=== PATIENT | male | born 1960 | race Caucasian/White ===

== ENCOUNTER 2022-12-03 08:14 | Observation (INO) ==
--- NOTE | 2022-11-12 08:50 | PAT Medication Instructions ---
Medication Instructions Date of Service November 12, 2022 Home Medications Medication Instructions Recorded [employer] #1 ea 02/06/22 cholecalciferol (vitamin D3) 50 50 mcg PO QAM #90 caps 04/25/22 mcg (2,000 unit) capsule omeprazole 20 mg capsule,delayed 20 mg PO QAM PRN reflux #90 caps 05/12/22 release cyclobenzaprine 5 mg tablet 5 mg PO TID PRN muscle spasm #20 08/13/22 tabs lisinopril 5 mg tablet (Zestril) 5 mg PO QAM #90 tabs 08/27/22 atorvastatin 40 mg tablet (Lipitor) 40 mg PO QPM #90 tabs 08/28/22 nicotine 14 mg/24 hr daily 1 patch transdermal DAILY #14 ea 09/02/22 transdermal patch nicotine 7 mg/24 hr daily 1 patch transdermal Q24H #14 ea 09/02/22 transdermal patch hydrocodone 5 mg-acetaminophen 325 1 tab PO Q8H PRN pain #30 tabs 10/23/22 mg tablet carvedilol 6.25 mg tablet (Coreg) 6.25 mg PO BID #180 tabs 11/10/22 trazodone 50 mg tablet 50 mg PO HS PRN Sleep #90 tabs 11/10/22 venlafaxine 75 mg capsule,extended 75 mg PO QAM #90 caps 11/10/22 release 24 hr (Effexor XR) aspirin 81 mg tablet,delayed release 81 mg PO QAM [employer] cholecalciferol (vitamin D3) 50 mcg (2,000 unit) capsule 50 mcg PO QAM omeprazole 20 mg capsule,delayed release 20 mg PO QAM PRN cyclobenzaprine 5 mg tablet 5 mg PO TID PRN lisinopril 5 mg tablet (Zestril) 5 mg PO QAM atorvastatin 40 mg tablet (Lipitor) 40 mg PO QPM nicotine 14 mg/24 hr daily transdermal patch 1 patch transdermal DAILY nicotine 7 mg/24 hr daily transdermal patch 1 patch transdermal Q24H hydrocodone 5 mg-acetaminophen 325 mg tablet 1 tab PO Q8H PRN carvedilol 6.25 mg tablet (Coreg) 6.25 mg PO BID trazodone 50 mg tablet 50 mg PO HS PRN venlafaxine 75 mg capsule,extended release 24 hr (Effexor XR) 75 mg PO QAM ASK your prescriber and surgeon nicotine 14 mg/24 hr daily transdermal patch 1 patch transdermal DAILY nicotine 7 mg/24 hr daily transdermal patch 1 patch transdermal Q24H DO NOT take the morning of surgery cholecalciferol (vitamin D3) 50 mcg (2,000 unit) capsule 50 mcg PO QAM cyclobenzaprine 5 mg tablet 5 mg PO TID PRN lisinopril 5 mg tablet (Zestril) 5 mg PO QAM Take morning of surgery With a small sip of water, OTHERWISE NOTHING TO EAT OR DRINK AFTER MIDNIGHT: omeprazole 20 mg capsule,delayed release 20 mg PO QAM PRN(if needed) hydrocodone 5 mg-acetaminophen 325 mg tablet 1 tab PO Q8H PRN(if needed) carvedilol 6.25 mg tablet (Coreg) 6.25 mg PO BID venlafaxine 75 mg capsule,extended release 24 hr (Effexor XR) 75 mg PO QAM aspirin 81 mg tablet,delayed release 81 mg PO QAM (unless directed otherwise by surgeon) Take evening before surgery cyclobenzaprine 5 mg tablet 5 mg PO TID PRN(if needed) atorvastatin 40 mg tablet (Lipitor) 40 mg PO QPM hydrocodone 5 mg-acetaminophen 325 mg tablet 1 tab PO Q8H PRN(if needed) carvedilol 6.25 mg tablet (Coreg) 6.25 mg PO BID trazodone 50 mg tablet 50 mg PO HS PRN(if needed) Other Notes If you have any questions please call us at [phone] or [phone] or [phone] or [phone]
--- NOTE | 2022-11-13 09:20 | Anesthesiology Consultation ---
Date of Service November 13, 2022 Assessment & Plan (1) Encounter for pre-operative examination: Plan - left upper tooth infection, pt states surgeon's office is aware. - Outpatient joint assessment: Patient is currently scheduled for inpatient pathway. If re-evaluated pending system levels during current pandemic/surgeon requests outpatient pathway, patient is not acceptable candidate for outpatient joint program from anesthesia standpoint due to inadequate home support. - Case discussed with Dr. Covarrubias who advised pt acceptable to proceed from his standpoint, does not need further evaluation or testing. Chart Review Chart Review: Acceptable Risk for Surgery and Patient seen in Pre Admission Testing Teaching & Discussion Pre-Anesthesia Teaching/Discussion Notes: Instructed NPO after midnight before surgery, except medications with 15 cc of water. Medication instructions provided according to the PAT guidelines. History Surgery Operation Date: 12/03/22 08:50 Proposed Procedures p Left Total Knee Arthroplasty - Partha Virgen MD Height/Weight Height: 5 ft 9.5 in Weight: 95.8 kg Allergies Allergy/AdvReac Type Severity Reaction Status Date / Time No Known Drug Allergies Allergy Verified 11/12/22 07:30 Medications Home Medications Medication Instructions Recorded Confirmed Last Taken aspirin 81 mg tablet,delayed 81 mg PO QAM 07/22/21 11/12/22 11/07/21 09:00 release [employer] #1 ea 02/06/22 10/23/22 Unknown cholecalciferol (vitamin D3) 50 50 mcg PO QAM #90 caps 04/25/22 11/12/22 Unknown mcg (2,000 unit) capsule omeprazole 20 mg capsule,delayed 20 mg PO QAM PRN reflux #90 caps 05/12/22 11/12/22 Unknown release cyclobenzaprine 5 mg tablet 5 mg PO TID PRN muscle spasm #20 08/13/22 11/12/22 Unknown tabs lisinopril 5 mg tablet (Zestril) 5 mg PO QAM #90 tabs 08/27/22 11/12/22 Unknown atorvastatin 40 mg tablet (Lipitor) 40 mg PO QPM #90 tabs 08/28/22 11/12/22 Unknown nicotine 14 mg/24 hr daily 1 patch transdermal DAILY #14 ea 09/02/22 11/12/22 Unknown transdermal patch nicotine 7 mg/24 hr daily 1 patch transdermal Q24H #14 ea 09/02/22 11/12/22 Unknown transdermal patch hydrocodone 5 mg-acetaminophen 325 1 tab PO Q8H PRN pain #30 tabs 10/23/22 11/12/22 Unknown mg tablet carvedilol 6.25 mg tablet (Coreg) 6.25 mg PO BID #180 tabs 11/10/22 11/12/22 Unknown trazodone 50 mg tablet 50 mg PO HS PRN Sleep #90 tabs 11/10/22 11/12/22 Unknown venlafaxine 75 mg capsule,extended 75 mg PO QAM #90 caps 11/10/22 11/12/22 Unknown release 24 hr (Effexor XR) Past Medical History Medical History (Updated 11/13/22 @ 09:34 by Guillermina Meier PA-C) Coronary artery disease DEMOND to mid LAD and ostial/proximal D2 on 08/22/15 Depression Emphysema lung mild per lung CT 06/16 report GERD (gastroesophageal reflux disease) controlled, stable per pt History of ND (myocardial infarction) (2015) 2014 STEMI s/p 2 drug-eluting stents Hx of vertigo Hyperlipidemia Hypertension controlled, stable per pt Ischemic cardiomyopathy EF 41% on 2014 stress echo, 55-60% 03/16 echo Lumbar degenerative disc disease Macular degeneration Post traumatic stress disorder Prediabetes Sensorineural hearing loss (SNHL) of right ear with restricted hearing of left ear Patient denies h/o stroke, seizures, blood clots or blood transfusions. Exercise / Class Metabolic Activity II 4-5 Yardwork/Stairs/Walk up hill (denies chest discomfort or shortness of breath with 1 FOS) Past Family History Family History Father Diabetes Hearing loss Heart disease Myocardial infarction Hypertension Mother Allergies Breast cancer Uncle Prostate cancer Other No family history of adverse response to anesthesia No family history of bleeding disorder Denies family history of Ovarian cancer Colorectal cancer Past Surgical History Surgical History History of tooth extraction S/P coronary artery stent placement (2015) STENTS X 2 (2014 WHILE IN [place]) S/P left knee arthroscopy (2016) X 2 S/P sinus surgery (10/2021) ESS 11/08/21 LMA#5. Strabismus REPAIRED X 2 Past Anesthesia History No Hx of Anesthesia Complications and No Family Hx of Anesthesia Complications History of PONV No Hx of PONV and No Hx of Motion Sickness Social History Smoking Status: Current every day smoker tobacco type: cigarettes Smoking cigarettes per day: 2 CIG DAILY "TRYING TO QUIT" SOME DAYS HAVE 0 Do You Dip or Chew Tobacco: No Hx Alcohol Use: Yes Alcohol type: beer alcohol intake frequency: a few times a week substance use type: does not use Review of Systems Snoring, denies witnessed apneas. Patient denies chest pain, shortness of breath, dyspnea on exertion, fever, chills, cough, wheezing, or palpitations. Physical Exam Vital Signs Vitals BP 118/83 P 59 TEMP 97.8 SP02 98% on RA RESP 18 Physical Full cervical extension range of motion without pain TMD 3.5 finger breadths Mallampati Score 3 Dentition: upper side partial, current left upper tooth infection; denies chipped or loose teeth, caps/crowns, implants Lungs: normal respiratory effort. Clear throughout to auscultation, no adventitious breath sounds Cardiac: regular rate and rhythm, no murmurs noted Carotid arteries: negative bruit bilat Lab Results Anesthesia Preop Results Results Anesthesia Widget: WBC 7.45 K/ul (4.8-10.8) 11/13/22 Hgb 14.3 g/dl (14.0-18.0) 11/13/22 Hct 40.8 % (40.1-51.0) 11/13/22 Plt 234 K/uL (130-400) 11/13/22 Na 136 mmol/L (136-145) 11/13/22 K 4.3 mmol/L (3.5-5.1) 11/13/22 Cl 105 mmol/L (98-107) 11/13/22 CO2 26 mmol/L (21-32) 11/13/22 BUN 11 mg/dl (6-23) 11/13/22 Creat 0.69 mg/dl (0.6-1.4) 11/13/22 Glucose Level 90 mg/dl (70-99(Fasting)) 11/13/22 PT 10.5 Seconds (9.0-12.0) 11/13/22 PTT 27.6 Seconds (21.0-31.0) 11/13/22 INR 1.0 (0.9-1.1) 11/13/22 HA1c 5.6 % (4.5-5.6) 11/13/22 Blood Type O Positive 11/13/22 Antibody Screen NEGATIVE 11/13/22 Testing Electrocardiogram Date: 11/13/22 Sinus bradycardia, rate 57 bpm Echocardiogram Date: 03/20/22 EF 55-60% No LV wall motion abnormalities Borderline cLVH No significant valvular pathology Stress Test Date: 06/25/16 Pharmacologic LV dilated and hypocontractile with an EF of 41% with abnormal wall motion Other Testing Lumbosacral x-ray 07/22/22 Pars defect of L5 with grade 1 anterolisthesis of L5 on S1. Mild multilevel degenerative changes CT lung 05/28/22 1. Mild emphysema. 2. No suspicious pulmonary lesion is identified. COVID-19 Risk Screen Screening Information COVID-19 Screen Date: 11/13/22 Exposure 21 Days Family/Household +COVID Last 21 Days: No Exposure 10 Days Any COVID Exposure Last 10 Days: No Symptoms Last 10 Days Experienced COVID Sx Last 10 Days: No + COVID 0-90 Days COVID + in Last 0-90 Days: No
[~2022-12-03 08:14] MED LIST: ACETAMINOPHEN 500 MG TAB PO SCH; BUPIVACAINE 0.25% 30 ML VIAL ONE; BUPIVACAINE 0.5 % 5 MG/1 ML PF 10ML VIAL ONE; BUPIVACAINE LIPOSOME/PF 266 MG, BUPIVACAINE/EPINEPHRINE 50 ML, SODIUM CHLORIDE 0.9% 30 ... INFIL SCH; CeleBREX 200 MG CAP PO SCH; FAMOTIDINE 20 MG TAB PO SCH; LR 500ML BOLUS, THEN 15ML/HR IV SCH; LR 60ML/HR IV SCH; METOCLOPRAMIDE HCL 10 MG TABLET PO SCH; Scopolamine 1 MG TDSY TD SCH; TRANEXAMIC ACID 1,000 MG **IV Intra-op IV SCH; ceFAZolin 2000MG 2,000 MG/15 ML SYR IV SCH
--- NOTE | 2022-12-03 09:10 | History & Physical Bridge Note ---
Date of Service December 03, 2022 History & Physical Bridge Note I have examined the patient, reviewed the History & Physical and in the interval since the performance of the History & Physical I have noted the following changes of clinical significance: no changes noted
[2022-12-03] MEDS ORDERED: MIDAZOLAM HCL 1 MG/ML 2ML VIAL ONE (09:35)
[2022-12-03] MEDS ORDERED: ONDANSETRON INJ 2 MG/ML 2 ML VIAL IV PRN ×2 (10:02→14:22)
[2022-12-03] MEDS ORDERED: ePHEDrine sulfate 50 MG/ML AMP IV PRN (10:02)
[2022-12-03] MEDS ORDERED: ATROPINE SULFATE 0.1 MG/ML 10ML SYR IV PRN (10:02)
[2022-12-03] MEDS ORDERED: fentaNYL citrate 100 MCG/2 ML VIAL IV PRN (10:02)
[2022-12-03] MEDS ORDERED: BUPIVACAINE/EPINEPHRINE 0.25% 1:200,000 30 ML VIAL ONE (10:45)
[2022-12-03] MEDS ORDERED: SODIUM CHLORIDE 0.9% PF 50 ML VIAL ONE (10:45)
[2022-12-03] MEDS ORDERED: BUPIVACAINE LIPOSOME 1.3% 266 MG/20 ML VIAL ONE (10:45)
[2022-12-03] MEDS ORDERED: VANCOMYCIN HCL 1000MG/20ML VIAL ONE (10:46)
[2022-12-03] MEDS ORDERED: PROPOFOL IV EMULSION 10 MG/ML 20 ML VIAL IV ONE ×2 (11:45→12:12)
[2022-12-03] MEDS ORDERED: LIDOCAINE 2% MPF LOCAL 5 ML VIAL INFIL ONE (11:45)
--- NOTE | 2022-12-03 12:55 | Operative Report ---
PG Post Operative Report Pre & Post Diagnosis Operation Date: 12/03/22 10:40 Pre-Op Diagnosis: Osteoarthritis, Left Knee Post-Op Diagnosis: Osteoarthritis, Left Knee I identified the patient and participated in the time-out.: Yes Procedure Operation Date: 12/03/22 10:40 Actual Procedures p Left Total Knee Arthroplasty(Left) - Partha Virgen MD Surgeon Partha Virgen MD Flame Gouger Hany Rankin PA-C Estimated Blood Loss 50 Findings Consistent with Post-Op Diagnosis Operative findings revealed extensive grade 4 [id number] disease in the medial compartment of his knee. The rest of his knee look pretty good. He did have a blood-tinged to the synovium with hemosiderin deposits. No signs of PVNS or more aggressive disease. He did have a moderate-sized knee effusion. Fluids 1000 cc Specimens Left knee sent for pathology Drains None Anesthesia Type Spinal MAC Complications none Disposition Accompanied Patient To Recovery: No Indications Patient is a 62-year-old gentleman who had a long history of left knee pain discomfort. Is been through extensive conservative treatment as well as multiple operations primarily done in [place] which have been, less successful over time. The pain became more debilitating. X-rays show progressive knee arthritis. He elected proceed with surgical treatment. Description of Procedure The patient was taken the operating, identified, and placed on the operating table supine position with contact-guard for appropriately padded. IV antibiotics were by anesthesia team. A spinal anesthetic and adductor canal block had been provided in the holding area. Horan catheter was placed in sterile fashion. The left atrium was then placed in the left lower extremities and prepped and draped in usual sterile fashion. The left leg was elevated exsanguinated with use of an Esmarch and tourniquet placed at 300 mmHg. An anterior approach the left knee was then performed through a longitudinal incision centered over the patella. Sharp dissection was Through subcutaneous tissue down to the extensor mechanism. Medial parapatellar arthrotomy incision was made. Some subperiosteal dissection was carried out medially. The knee was flexed and the patella was subluxated laterally. The lateral patellofemoral ligament was released. The ACL and PCL were then released from distal femur and the tibia subluxated anteriorly. The external tibial alignment jig was then placed in the anterior face the tibia and adjusted 14 mm medially. Proximal tibial cut was made to remove about 2 to 3 mm of bone from the medial side. He did have full-thickness cartilage loss of the tibial plateau but no real eburnation changes. The tibia was then sized to a size 75. Attention drawn to the femur. The distal femur 10 with a sharp drill. Intramedullary canal was suction. The left 6 degree valgus cutting guide was placed. This femoral cutting block was pinned in place. Distal femoral cut was made take an additional 3 mm of bone off distal femur. The femur was then sized to a size 72.5. We did downsize this almost half a size. The AP cutting block was pinned parallel to the epicondylar axis which was 5 degrees of external rotation. The anterior cut, anterior chamfer, posterior cut, posterior chamfer cuts were made. The box cutting guide was placed and just slight lateral and the box cut was made. The knee was flexed. The remnants of the medial and lateral menisci were excised with the osteophyte taken off the posterior aspect the femur. A trial femoral component was placed through the tibial tray was pinned in maximum external rotation and the drill and stem punch were used to create a defect in proximal tibia for the tibial tray. Knee was then trialed and the 12 mm insert fit most appropriately. Attention drawn to the patella. The patella was cleaned of all soft tissues. Patella thickness measured 23 mm in thickness it was cut down to 14. It was sized to a size 34 patella. The lug holes were drilled for 34 patella. The lateral osteophytes removed. Patella button was placed. Knee was taken through range of motion patella tracked nicely with no thumbs test. Attention during the placement permanent components. Ultra components were removed. Bone plug was placed in the distal femur limit blood loss. Double batch Palacos G cement was mixed. I did add an additional gram of vancomycin due to his multiple previous knee surgeries. A Biomet Vanguard size 72.5 left posterior stabilized femoral component, size 75 tibial tray, 12 mm posterior stabilized polyethylene insert, and 34 x 8 and half all- poly patella within placed and cemented in place. All extraneous cement was removed. The knee was brought out in full extension till cement hardened. Final symmetric underwater photographer) performed. The pericapsular tissues were injected with a total of 100 cc of combination of 20 cc Exparel, 30 cc of normal saline, 50 cc of core percent Marcaine with epinephrine. Patient did receive 1 g tranexamic acid. The tourniquet was let down for final [place] 58 minutes. Hemostasis assured with electrocautery. Expect some mechanism was then closed with a combination of 1 PDS suture and then 1 Vicryl suture in [id number] fashion. Extension excellent check found be intact with subcutaneous tissue and then closed with 2 Dexon suture in a buried interrupted fashion and then the skin was closed with skin neo. Leg was then cleaned and dried and a sterile dressing of Xeroform, 4 fourths, sterile cast padding, Marv bandage were applied. Patient then transferred to the recovery room in stable condition. Patient tolerated procedure well and there were no complications. Hany Rankin, my physician cable splicer assistant, was present for the entire procedure. His assistance was essential and required for appropriate patient positioning, prepping and draping, surgical exposure, performing the technical details of the operation, placement the implants, closure of the wound, and placement of the sterile bandage. I attest to the content of the Intraoperative Record and any orders documented therein. Any exceptions are noted below.
--- NOTE | 2022-12-03 13:17 | XRay Report ---
LEFT KNEE 2 VIEWS History: Left total knee arthroplasty. Degenerative arthritis. Postop. FINDINGS: The patient is status post a left total knee arthroplasty. The hardware is intact. No fract ure or dislocation. Skin neo are in place. IMPRESSION: Left total knee arthroplasty. No evidence for hardware complication. ACT 112: Negative or not required by law. Electronically signed by: London Wahl M.D. 12/03/2022 1:15 PM
--- NOTE | 2022-12-03 13:31 | Anesthesiology Progress Note ---
Date of Service December 03, 2022 Anesthesia Post Procedure Vital Signs Vital Signs: Temp Pulse Pulse Resp BP Pulse Ox O2 Del Method 12/03/22 13:20 52 L 17 122/83 100 Nasal Cannula 12/03/22 13:00 56 L 17 100/74 99 Oxymask 12/03/22 13:10 53 L 13 114/77 100 Nasal Cannula 12/03/22 12:52 96.8 F L 67 16 116/74 100 Oxymask 12/03/22 09:01 97.9 F 65 18 139/92 97 Room Air 12/03/22 09:01 Room Air O2 Flow Rate 12/03/22 13:20 2 12/03/22 13:00 11 12/03/22 13:10 4 12/03/22 12:52 11 12/03/22 09:01 12/03/22 09:01 Transfer of Care Handoff Completed per policy Notes Mental Status: alert / awake / arousable and participated in evaluation Patient Amnestic to Procedure: Yes Nausea / Vomiting: adequately controlled Pain: adequately controlled Airway Patency, RR, SpO2: stable & adequate BP & HR: stable & adequate Hydration State: stable & adequate Neuraxial Anesthesia: was administered and sensory block is resolving Anesthetic Complications: no major complications apparent and Pt Satisfied with anesthetic care
[2022-12-03] MEDS ORDERED: METOCLOPRAMIDE HCL INJ 5 MG/ML 2 ML VIAL IV PRN (14:22)
[2022-12-03] MEDS ORDERED: traZODone HCL 50 MG TAB PO PRN (14:22)
[2022-12-03] MEDS ORDERED: diphenhydrAMINE Capsule 25 MG CAP PO PRN (14:22)
[2022-12-03] MEDS ORDERED: bisacodyL 10 MG SUPP PR PRN (14:22)
[2022-12-03] MEDS ORDERED: MAGNESIUM HYDROXIDE SUSP 30 ML UDC PO PRN (14:22)
[2022-12-03] MEDS ORDERED: CYCLOBENZAPRINE HCL 5 MG TAB PO PRN (14:22)
[2022-12-03] MEDS ORDERED: NALOXONE HCL 0.4 MG/1 ML VIAL/CARP IV PRN (14:22)
[2022-12-03] MEDS ORDERED: TAMSULOSIN HCL 0.4 MG CAP PO PRN (14:22)
[2022-12-03] MEDS ORDERED: HYDROmorphone INJ 0.5 MG/0.5 ML SYR IV PRN (14:22)
[2022-12-03] MEDS ORDERED: ALUMINUM/MAGNESIUM SUSP 30 ML UDC PO PRN (14:22)
[2022-12-03] MEDS: SODIUM CHLORIDE 0.9% 1000ML 1,000 ML IV SCH (14:33)
[2022-12-03] MEDS ORDERED: PANTOprazole 40 MG TAB PO PRN (14:44)
[2022-12-03] MEDS: KETOROLAC 30 MG/ML VIAL IV SCH ×2 (14:59→20:25)
[2022-12-03] MEDS: ACETAMINOPHEN 500 MG TAB PO SCH ×2 (14:59→22:10)
[2022-12-03] MEDS: NICOTINE 14 MG/24 HR PATCH TD SCH (14:59)
[2022-12-03] MEDS: ASCORBIC ACID 500 MG TAB PO SCH (16:43)
[2022-12-03] MEDS: Scopolamine CHECK PATCH PLACEMENT SCH (16:43)
--- NOTE | 2022-12-03 17:22 | Progress Notes ---
SUBJECTIVE: A 62-year-old gentleman, postop from a left knee replacement. He is doing well. Just s tarting to get some pain in his knee. No other complaints. It is very comfortable otherwise. No ch est pain or shortness of breath. Not feeling dizzy or lightheaded. OBJECTIVE VITAL SIGNS: Temperature 36.5. Vital signs are stable. GENERAL: Shows a pleasant, thin middle-aged male. He is sitting up in bed and looks comfortable. LUNGS: Clear to auscultation. HEART: Regular rate and rhythm. ABDOMEN: Soft, nontender, nondistended. EXTREMITIES: Grossly neurovascularly intact except as follows: Examination of the left leg reveals the dressing to be clean, dry and intact. Leg is well aligned. There is no drainage on his dressing. He can dorsiflex and plantarflex his foot appropriately. He i s neurologically intact. X-RAYS: X-rays of the left knee from recovery room were reviewed. It shows left cemented posterior stabilized total knee arthroplasty. Components looked to be in good position. No signs of problems. ASSESSMENT: A 62-year-old male with a history of multiple knee surgeries in the past, now postop fro m a left knee replacement, doing well. Pain is controlled. He is neurologically intact. PLAN: 1. DVT prophylaxis includes thigh-high TEDs, SCDs, and aspirin twice a day. 2. PT, OT, weightbear as tolerated. Left total knee protocol. 3. Pain control, doing okay with current pain regimen. We may need to address things as the spinal wears off. 4. IV antibiotics x24 hours. 5. History of smoking. We will use a patch if needed. He says he can go a couple of days without c igarettes and we will see how things come along with that. 6. Disposition: Plan to discharge to home with home health once adequately recovered and medically stable. Job ID: [id number]
[2022-12-03] MEDS: ceFAZolin 2000MG 2,000 MG/15 ML SYR IV SCH (18:15)
[2022-12-03] MEDS ORDERED: TRANEXAMIC ACID / 0.7% NACL 1,000 MG/100 ML BAG IV SCH (19:00)
[2022-12-03] MEDS: ASPIRIN 81 MG ECTAB PO SCH (20:25)
[2022-12-03] MEDS: carvediloL 6.25 MG TAB PO SCH (20:26)
[2022-12-03] MEDS: TAPENTADOL HCL ER 50 MG TABCR PO SCH (20:28)
[2022-12-03] MEDS: DOCUSATE SODIUM/SENNA 50/8.6MG TAB PO SCH (20:29)
[2022-12-03] MEDS: DOCUSATE SODIUM 100 MG CAP PO SCH (20:30)
[2022-12-03] MEDS ORDERED: SENNA 8.6 MG TAB PO SCH (21:00)
[2022-12-03] MEDS ORDERED: ATORVASTATIN 40 MG TAB PO SCH (21:00)
[2022-12-04] MEDS: SODIUM CHLORIDE 0.9% 1000ML 1,000 ML IV SCH (00:07)
[2022-12-04] MEDS: Scopolamine CHECK PATCH PLACEMENT SCH ×2 (00:07→08:07)
[2022-12-04] MEDS: oxyCODONE HCL IR 5 MG TAB (IMMEDIATE RELEASE) PO PRN ×2 (00:13→08:01)
[2022-12-04] MEDS: KETOROLAC 30 MG/ML VIAL IV SCH ×2 (03:14→08:07)
[2022-12-04] MEDS: ceFAZolin 2000MG 2,000 MG/15 ML SYR IV SCH (03:14)
[2022-12-04] MEDS: ACETAMINOPHEN 500 MG TAB PO SCH (05:33)
[2022-12-04 06:04] LABS: Hematocrit (blood only) 34.1 % (42.0-52.0); Hemoglobin 11.9 g/dl (14.0-18.0); Mean Corpuscular Hemoglobin 30.9 pg (25.0-34.0); Mean Corpuscular Hgb Conc 34.9 g/dL (32.0-36.0); Mean Corpuscular Volume 88.6 fL (80.0-100.0); Mean Platelet Volume 10.7 fL (9.4-12.4); Platelet Count 192 K/uL (130-400); RDW Coefficient of Variation 12.7 % (11.5-14.5); RDW Standard Deviation 41.4 fL (36.4-46.3); Red Blood Count 3.85 M/uL (4.70-6.10); White Blood Count 9.58 K/ul (4.8-10.8)
[2022-12-04 06:17] LABS: BUN Creatinine Ratio 22.7 (10-20); Calcium 7.5 mg/dl (8.5-10.1); Creatinine Clr Calc Pharmacy 117.8 ml/min; Est GFR (African American) 114.8 ml/min; Potassium 4.3 mmol/L (3.5-5.1)
--- NOTE | 2022-12-04 07:53 | Progress Notes ---
SUBJECTIVE: A 62-year-old gentleman postoperative day 1 from left knee replaced. He is doing pretty well. Some pain, but controlled. No chest pain or shortness of breath. He got up and went to the bathroom. reasonably well. OBJECTIVE: VITAL SIGNS: Temperature 36.8. Vital signs are stable. GENERAL: Shows a pleasant middle-aged male. He is sitting up in bed, looks pretty comfortable this morning. EXTREMITIES: Examination of the left leg reveals the leg to be well aligned. Dressing is clean, dry and intact. He can dorsiflex and plantarflex his foot appropriately. He is neurologically intact. LABORATORY DATA: Hemoglobin 11.9. Hematocrit 34.1. Electrolytes are stable. ASSESSMENT: A 62-year-old gentleman, postoperative day 1 from a left knee replacement, doing reasona alda well. Pain is controlled. He is neurologically intact. PLAN: 1. DVT prophylaxis including thigh-high TEDs, SCDs, and aspirin twice a day. 2. PT, OT, weightbear as tolerated. Left total knee protocol. 3. Pain control, doing okay with current pain regimen. 4. Disposition: Plan to discharge to home with some home health depending on how he does in therapy today. Job ID: [id number]
[2022-12-04] MEDS ORDERED: dexAMETHasone 10 MG in SYRINGE 0 ML IV SCH (08:00)
[2022-12-04] MEDS: DOCUSATE SODIUM 100 MG CAP PO SCH (08:03)
[2022-12-04] MEDS: DOCUSATE SODIUM/SENNA 50/8.6MG TAB PO SCH (08:04)
[2022-12-04] MEDS: ASPIRIN 81 MG ECTAB PO SCH (08:04)
[2022-12-04] MEDS: ASCORBIC ACID 500 MG TAB PO SCH (08:06)
[2022-12-04] MEDS: NICOTINE 14 MG/24 HR PATCH TD SCH (08:16)
[2022-12-04] MEDS: TAPENTADOL HCL ER 50 MG TABCR PO SCH (08:16)
[2022-12-04] MEDS ORDERED: MULTIVITAMIN TAB PO SCH (09:00)
[2022-12-04] MEDS ORDERED: CHOLECALCIFEROL 1,000 UNITS 25 MCG TAB PO SCH (09:00)
[2022-12-04] MEDS ORDERED: VENLAFAXINE HCL XR 75 MG CAPXR PO SCH (09:00)
[2022-12-04] MEDS ORDERED: lisinopril 5 MG TAB PO SCH (09:00)
[2022-12-04] MEDS: carvediloL 6.25 MG TAB PO SCH (09:14)
--- NOTE | 2022-12-06 08:09 | Discharge Summary ---
Date of Service December 06, 2022 Discharge Data Procedures Performed Operation Date: 12/03/22 10:40 Actual Procedures p Left Total Knee Arthroplasty(Left) - Partha Virgen MD Hospital Course (1) Status post total left knee replacement: This is a 62 year old patient admitted on 12/03/22 and underwent total knee arthroplasty. He tolerated the procedure well and there were no complications. Transferred to the PACU post op and later to the orthopedic floor for further care. He was given ancef for antibiotic prophylaxis. He was also given SAKINA stockings, SCDs, and aspirin for DVT prophylaxis. Hemoglobin, hematocrit, and vital signs were monitored during his hospital stay and remained stable. Did not require any blood transfusions. There were no complications during his hospital stay. By post op day #1 the patient was tolerating a regular diet, pain was reasonably controlled with oral pain medicine, and he was participating in physical therapy. On post op day #1 the patient was discharged home and set up with home health care. He was given printed discharge instructions including prescriptions for extra strength tylenol, aspirin, cefadroxil, ketorolac, zofran, senokot, and oxycodone. Continue physical therapy, weight bearing as tolerated. Continue SAKINA stockings. Follow up approximately 2 weeks post op or sooner if there are problems or concerns. Coding Level of Care Code None Diagnoses Status post total left knee replacement Z96.652
== END 2022-12-04 12:28 | disposition home health service (06) ==
LOC: 3E 08:14 → ASU 08:14

== ENCOUNTER 2023-10-21 08:55 | Observation (INO) ==
--- NOTE | 2023-10-13 09:46 | Anesthesiology Consultation ---
Date of Service October 13, 2023 Assessment & Plan (1) Encounter for pre-operative examination: Plan - Outpatient joint assessment: Patient is currently scheduled for inpatient pathway. If re-evaluated pending system levels during current pandemic/surgeon requests outpatient pathway, patient is not acceptable candidate for outpatient joint program from anesthesia standpoint due to inadequate home support. - Per cobol mainframe developer on 10/13/2023: No known infectious disease contacts, current infectious disease symptoms in past 10 days or COVID positive test result in the past 30 days. Chart Review Chart Review: Acceptable Risk for Surgery and Patient NOT seen in Pre Admission Testing History Surgery Operation Date: 10/21/23 10:55 Proposed Procedures p Right Total Knee Arthroplasty - Partha Virgen MD Height/Weight Height: 5 ft 9 in Weight: 92.533 kg Allergies Allergy/AdvReac Type Severity Reaction Status Date / Time No Known Drug Allergies Allergy Verified 10/13/23 08:54 Medications Home Medications Medication Instructions Recorded Confirmed Last Taken [employer] #1 ea 02/06/22 09/28/23 Unknown cholecalciferol (vitamin D3) 50 50 mcg PO QAM #90 caps 04/25/22 10/12/23 Unknown mcg (2,000 unit) capsule lisinopril 5 mg tablet (Zestril) 5 mg PO QAM #90 tabs 02/24/23 10/12/23 Unknown carvedilol 6.25 mg tablet (Coreg) 6.25 mg PO BID #180 tabs 04/22/23 10/12/23 Unknown trazodone 50 mg tablet 50 mg PO HS PRN Sleep #90 tabs 05/25/23 10/12/23 Unknown omeprazole 20 mg capsule,delayed 20 mg PO QAM PRN reflux #90 caps 08/03/23 10/12/23 Unknown release atorvastatin 40 mg tablet (Lipitor) 40 mg PO QPM #90 tabs 08/31/23 10/12/23 Unknown acetaminophen 500 mg capsule 1,000 mg PO TID PRN Pain 09/28/23 10/12/23 Unknown aspirin 81 mg tablet,delayed 81 mg PO DAILY 09/28/23 10/12/23 Unknown release (Kyle Low Dose Aspirin) ondansetron HCl 4 mg tablet 4 mg PO Q6H PRN nausea 10/12/23 10/12/23 Unknown oxycodone 5 mg tablet 5 - 10 mg PO BID PRN pain 10/12/23 10/12/23 Unknown Past Medical History Medical History Emphysema lung mild per lung CT 06/16 report Ischemic cardiomyopathy EF 41% on 2014 stress echo, 55-60% 03/16 echo Hx of vertigo Macular degeneration Post traumatic stress disorder Hypertension controlled, stable per pt Sensorineural hearing loss (SNHL) of right ear with restricted hearing of left ear Lumbar degenerative disc disease Prediabetes GERD (gastroesophageal reflux disease) controlled, stable per pt Hyperlipidemia Depression History of [place] (myocardial infarction) (2015) 2014 STEMI s/p 2 drug-eluting stents Coronary artery disease DEMOND to mid LAD and ostial/proximal D2 on 08/22/15 Past Family History Family History Father Diabetes Hearing loss Heart disease Myocardial infarction Hypertension Mother Allergies Breast cancer Uncle Prostate cancer Other No family history of adverse response to anesthesia No family history of bleeding disorder Denies family history of Ovarian cancer Colorectal cancer Past Surgical History Surgical History Hx of colonoscopy Status post total left knee replacement History of tooth extraction S/P sinus surgery (10/2021) ESS 11/08/21 LMA#5. Strabismus REPAIRED X 2 S/P left knee arthroscopy (2016) X 2 S/P coronary artery stent placement (2015) STENTS X 2 (2014 WHILE IN [place]) Social History Smoking Status: Light tobacco smoker tobacco type: cigarettes Smoking cigarettes per day: about 4 per day- advised Do You Dip or Chew Tobacco: No Hx Alcohol Use: Yes Alcohol type: beer alcohol intake frequency: a few times a week Hx Substance Use: No substance use type: does not use Lab Results Anesthesia Preop Results Results Anesthesia Widget: WBC 6.42 K/ul (4.8-10.8) 10/05/23 Hgb 14.7 g/dl (14.0-18.0) 10/05/23 Hct 42.6 % (42.0-52.0) 10/05/23 Plt 250 K/uL (130-400) 10/05/23 Na 136 mmol/L (136-145) 10/05/23 K 4.2 mmol/L (3.5-5.1) 10/05/23 Cl 108 mmol/L (98-107) H 10/05/23 CO2 22 mmol/L (21-32) 10/05/23 BUN 14 mg/dl (6-23) 10/05/23 Creat 0.65 mg/dl (0.6-1.4) 10/05/23 Glucose Level 104 mg/dl (70-99(Fasting)) H 10/05/23 PT 10.7 Seconds (9.0-12.0) 10/05/23 PTT 31 Seconds (21-31) 10/05/23 INR 1.0 (0.9-1.1) 10/05/23 HA1c 5.6 % (4.5-5.6) 10/05/23 Blood Type O Positive 10/05/23 Antibody Screen NEGATIVE 10/05/23 Testing Electrocardiogram Date: 06/16/23 Sinus rhythm with occasional ventricular premature complexes, rate 66 bpm Echocardiogram Date: 03/20/22 EF 55-60% No LV regional wall motion abnormalities Borderline cLVH No significant valvular pathology Pulmonary Function Test Date: 07/01/23 No obstructive lung dysfunction, insignificant bronchodilator response Normal TLC with mild decrease in ERV Air trapping Normal DLCO Other Testing Low dose lung CT 06/12/23 1. No new or suspicious pulmonary nodules. 2. Emphysema. 3. Moderate to severe left coronary artery calcifications.
[~2023-10-21 08:55] MED LIST changes: -BUPIVACAINE 0.25% 30 ML VIAL ONE; -BUPIVACAINE LIPOSOME/PF 266 MG, BUPIVACAINE/EPINEPHRINE 50 ML, SODIUM CHLORIDE 0.9% 30 ... INFIL SCH; -LR 60ML/HR IV SCH; +ROPIVACAINE 0.5% 5 MG/ML 30 ML VIAL ONE; +dexAMETHasone**PF** 10 MG/ML VIAL IV SCH
[2023-10-21] MEDS: LR 60ML/HR IV SCH ×2 (09:52→11:33)
[2023-10-21] MEDS ORDERED: MIDAZOLAM HCL 1 MG/ML 2ML VIAL ONE (09:55)
[2023-10-21] MEDS ORDERED: LIDOCAINE 2% 2 ML VIAL/AMP(20MG/ML) INFIL ONE (09:55)
[2023-10-21] MEDS ORDERED: PROPOFOL IV EMULSION 10 MG/ML 20 ML VIAL IV ONE ×2 (09:55→12:37)
[2023-10-21] MEDS ORDERED: fentaNYL citrate PF 100 MCG/2 ML VIAL ONE ×2 (09:56→11:50)
[2023-10-21] MEDS ORDERED: ATROPINE SULFATE 0.1 MG/ML 10ML SYR IV PRN (10:03)
[2023-10-21] MEDS ORDERED: ONDANSETRON INJ 2 MG/ML 2 ML VIAL IV PRN ×2 (10:03→14:25)
[2023-10-21] MEDS ORDERED: ePHEDrine sulfate 50 MG/ML AMP IV PRN (10:03)
[2023-10-21] MEDS ORDERED: fentaNYL citrate PF 100 MCG/2 ML VIAL IV PRN (10:03)
[2023-10-21] MEDS ORDERED: BUPIVACAINE/EPINEPHRINE 0.25% 1:200,000 30 ML VIAL ONE (11:07)
[2023-10-21] MEDS ORDERED: SODIUM CHLORIDE 0.9% PF 50 ML VIAL ONE (11:07)
[2023-10-21] MEDS ORDERED: VANCOMYCIN HCL 1000MG/20ML VIAL ONE (11:08)
--- NOTE | 2023-10-21 11:19 | History & Physical Bridge Note ---
Date of Service October 21, 2023 History & Physical Bridge Note I have examined the patient, reviewed the History & Physical and in the interval since the performance of the History & Physical I have noted the following changes of clinical significance: no changes noted
[2023-10-21] MEDS ORDERED: BUPIVACAINE LIPOSOME 1.3% 266 MG/20 ML VIAL INFIL ONE (12:02)
[2023-10-21] MEDS ORDERED: ONDANSETRON INJ 2 MG/ML 2 ML VIAL ONE (12:07)
[2023-10-21] MEDS ORDERED: SODIUM CHLORIDE 0.9% PF INJ 10 ML VIAL ONE (13:08)
[2023-10-21] MEDS ORDERED: ePHEDrine sulfate 50 MG/ML AMP ONE (13:08)
--- NOTE | 2023-10-21 13:20 | Operative Report ---
PG Post Operative Report Pre & Post Diagnosis Operation Date: 10/21/23 10:40 Pre-Op Diagnosis: Right Knee Advanced Degenerative Joint Disease Post-Op Diagnosis: Right Knee Advanced Degenerative Joint Disease I identified the patient and participated in the time-out.: Yes Procedure Operation Date: 10/21/23 10:40 Actual Procedures p Right Total Knee Arthroplasty(Right) - Partha Virgen MD Surgeon Partha Virgen MD English Lecturer Hany Rankin PA-C Estimated Blood Loss 50 Findings Consistent with Post-Op Diagnosis Operative findings were advanced right knee medial compartment DJD with full- thickness cartilage loss medial femoral condyle medial tibial plateau. The rest of his knee joint looked fairly well-preserved. He had a moderate-sized joint effusion. He did have a fixed varus deformity to his knee. Specimens Right knee sent for pathology. Anesthesia Type Spinal MAC Complications none Disposition Accompanied Patient To Recovery: No Indications Patient is a 62-year-old gentleman whose had several year history of increasing bilateral knee pain discomfort. He has been through extensive conservative treatment which became meds less successful as time went on. He had his left knee replaced about 10 months ago and is done well from this. He continued be limited by right knee pain discomfort swelling. He elected proceed with right total knee replacement. Description of Procedure Operative implants consist of: 1 Biomet Vanguard size 72.5 right posterior stabilized femoral component. 2. Biomet size 75 tibial tray. 3. 12 mm posterior stabilized polyethylene insert. 4. 31 x 8 all poly patella. The patient was taken the operating, identified, placed on the operating table in the supine position. All contact areas were appropriately padded. IV antibiotics tried by anesthesia team. A spinal anesthetic and adductor canal block had provided in the holding area. A right Tetrick was then placed. The right lower extremities then prepped and draped in usual sterile fashion. The right leg was elevated exsanguinated with use of an Esmarch and the tourniquet was placed at 300 mmHg. An anterior approach of the right knee was then performed to longitudinal incision centered over the patella. Sharp dissection was carried through subcutaneous tissue down the extensor mechanism. He did have a fairly significantly chronically inflamed bursa. A medial parapatellar arthrotomy was then performed. Some subperiosteal dissection was carried out medially. The fat pad was resected from Neath patella tendon. Lateral patellofemoral ligament was released. Patella subluxated laterally and the knee was flexed. The osteophytes taken on distal femur. The ACL and PCL were then released from distal femur and the tibia subluxated anteriorly. The external tibial alignment jig was then placed the interface the tibia and adjusted 14 mm medially. Proximal tibial cut was made remove about 2 mm of bone from the medial side. Some osteophytes taken off medially. The tibia sized to a size 75. Attention drawn the femur. The distal femur was then with a sharp drill. Intramedullary canal was suction. A right 6 degree valgus cutting guide was placed. Distal femoral cutting block was pinned in place. Distal femoral cut was made to take an additional 3 mm of bone off distal femur. The femur was then sized to a size 672.5. The AP cutting block was pinned parallel to the epicondylar axis which was 4 degrees of external rotation. The anterior cut, anterior chamfer, posterior cut, posterior chamfer cuts were made. The box cutting guide was placed in a just slightly lateral. The box cut was made. The knee was flexed. The remnants of the medial and lateral menisci were excised. The osteophytes taken off the posterior aspect the femur. A trial femoral component was placed. The tibial tray was pinned Ruth Ann external rotation and the drill and stem punch were used to create defect in proximal tibia for the tibial tray. The knee was then trialed and the 12 mm insert fit most appropriately. Attention drawn the patella. The patella was cleaned of all soft tissues. Patella thickness measured 22 mm in thickness was cut down to 13. Was sized to a size 31 patella. The locals were drilled for 31 patella. The lateral osteophyte was removed. The patella button was placed. Knee was taken through range of motion patella tracked nicely with no thumbs test. Attention drawn to placing the permanent components. Nupathe all trial components were removed. Bone plug was placed into the distal femur limit blood loss. Double batch Pal[place]os G cement was mixed. I did place an additional gram of vancomycin in the cement due to his history of significant smoking and borderline diabetes. A Biomet Acacia Interactiveguard size 72.5 right posterior stabilized femoral component, size 75 tibial tray, a 12 mm post stabilized polyethylene insert, and 31 x 8 all poly patella then cemented in place. Knee was brought out into full extension till cement hardened. Final cement check was then performed. The pericapsular tissues were injected with total 100 cc of combination of 20 cc of Exparel, 30 cc normal saline, 50 cc of quarter percent Marcaine with epinephrine. Patient did receive 1 g tranexamic acid. The tourniquet was then let down for final tourniquet time 57 minutes. Hemostasis assured use electrocautery. Extensor Meclomen closed with combination 1 PDS suture and #1 Vicryl suture in [id number]-[id number] fashion. Extensor Meclomen checked found to be intact through subcutaneous tissue then closed with 2 Dexon suture in a buried interrupted fashion skin was closed skin neo. Leg was then cleaned and dried and sterile dressing was Xeroform, 4 fours, sterile cast padding, Marv bandage applied. Patient then transferred to the recovery room in stable condition. Patient tolerated procedure well and there were no complications. Hany Rankin, my physician assistant branch manager, was present for the entire procedure. His assistance was essential and required for appropriate patient positioning, prepping and draping, surgical exposure, performing the technical details of the operation, placement the implants, closure of the wound, and placement of the sterile bandage. I attest to the content of the Intraoperative Record and any orders documented therein. Any exceptions are noted below.
[2023-10-21] MEDS ORDERED: HYDROmorphone INJ 0.5 MG/0.5 ML SYR IV PRN (14:25)
[2023-10-21] MEDS ORDERED: traZODone HCL 50 MG TAB PO PRN (14:25)
[2023-10-21] MEDS ORDERED: bisacodyL 10 MG SUPP PR PRN (14:25)
[2023-10-21] MEDS ORDERED: MAGNESIUM HYDROXIDE SUSP 30 ML UDC PO PRN (14:25)
[2023-10-21] MEDS ORDERED: NALOXONE HCL 0.4 MG/1 ML VIAL/CARP IV PRN (14:25)
[2023-10-21] MEDS ORDERED: METOCLOPRAMIDE HCL INJ 5 MG/ML 2 ML VIAL IV PRN (14:25)
[2023-10-21] MEDS ORDERED: ALUMINUM/MAGNESIUM SUSP 30 ML UDC PO PRN (14:25)
[2023-10-21] MEDS ORDERED: PANTOprazole 40 MG TAB PO PRN (14:40)
--- NOTE | 2023-10-21 14:46 | Anesthesiology Progress Note ---
Date of Service October 21, 2023 Anesthesia Post Procedure Vital Signs Vital Signs: Temp Pulse Pulse Resp BP Pulse Ox O2 Del Method 10/21/23 14:27 97.5 F L 76 18 101/64 96 Room Air 10/21/23 14:15 691 H 16 103/66 96 Nasal Cannula 10/21/23 14:05 67 16 103/66 96 Nasal Cannula 10/21/23 13:55 97.5 F L 75 16 101/71 97 Nasal Cannula 10/21/23 13:45 68 15 101/69 96 Nasal Cannula 10/21/23 13:35 65 17 103/64 92 Nasal Cannula 10/21/23 13:25 70 20 96/65 L 94 Room Air 10/21/23 13:14 97.2 F L 73 16 107/70 95 Room Air 10/21/23 09:31 97.3 F L 70 18 109/71 96 Room Air O2 Flow Rate 10/21/23 14:27 10/21/23 14:15 2 10/21/23 14:05 2 10/21/23 13:55 2 10/21/23 13:45 2 10/21/23 13:35 2 10/21/23 13:25 10/21/23 13:14 10/21/23 09:31 Pain Intensity Right Knee: Pain Intensity: 5 Transfer of Care Handoff Completed per policy Notes Mental Status: alert / awake / arousable and participated in evaluation Patient Amnestic to Procedure: Yes Nausea / Vomiting: adequately controlled Pain: adequately controlled Airway Patency, RR, SpO2: stable & adequate BP & HR: stable & adequate Hydration State: stable & adequate Neuraxial Anesthesia: was administered and sensory block is resolving Anesthetic Complications: no major complications apparent and Pt Satisfied with anesthetic care
[2023-10-21] MEDS: SODIUM CHLORIDE 0.9% 1,000 ML IV SCH (14:52)
[2023-10-21] MEDS: ACETAMINOPHEN 500 MG TAB PO SCH ×2 (15:13→20:53)
[2023-10-21] MEDS: Scopolamine CHECK PATCH PLACEMENT SCH ×2 (15:13→23:26)
[2023-10-21] MEDS: KETOROLAC 30 MG/ML VIAL IV SCH ×2 (15:13→20:54)
--- NOTE | 2023-10-21 16:24 | XRay Report ---
XR knee RT 1 or 2V routine HISTORY: 62 years-old Male Surgical Post Op right knee arthroplasty COMPARISON: 10/05/2023 TECHNIQUE: 2 views of the right knee FINDINGS: Total joint arthroplasty with patellar resurfacing. Anterior midline skin neo with expected posto perative soft tissue swelling and deep tissue air. No acute fracture or unexpected opaque foreign bod y. IMPRESSION: Total joint arthroplasty with expected postoperative changes. ACT 112: Negative or not required by law. The above report was generated using voice recognition software. It may contain grammatical, syntax o r spelling errors. Electronically signed by: Christian Kinsey M.D. 10/21/2023 4:23 PM
[2023-10-21] MEDS: carvediloL 6.25 MG TAB PO SCH (17:35)
[2023-10-21] MEDS: ASCORBIC ACID 500 MG TAB PO SCH (17:35)
[2023-10-21] MEDS ORDERED: TRANEXAMIC ACID / 0.7% NACL 1,000 MG/100 ML BAG IV SCH (19:15)
[2023-10-21] MEDS: ceFAZolin 2000MG 2,000 MG/15 ML SYR IV SCH (19:54)
[2023-10-21] MEDS: ASPIRIN 81 MG ECTAB PO SCH (20:53)
[2023-10-21] MEDS: DOCUSATE SODIUM 100 MG CAP PO SCH (20:54)
[2023-10-21] MEDS ORDERED: ATORVASTATIN 40 MG TAB PO SCH (21:00)
[2023-10-21] MEDS ORDERED: SENNA 8.6 MG TAB PO SCH ×2 (21:00)
[2023-10-21] MEDS: oxyCODONE HCL IR 5 MG TAB (IMMEDIATE RELEASE) PO PRN (23:25)
[2023-10-22] MEDS: SODIUM CHLORIDE 0.9% 1,000 ML IV SCH (00:52)
[2023-10-22] MEDS: KETOROLAC 30 MG/ML VIAL IV SCH ×2 (03:04→07:44)
[2023-10-22] MEDS: ceFAZolin 2000MG 2,000 MG/15 ML SYR IV SCH (03:04)
[2023-10-22 07:30] LABS: Hematocrit (blood only) 33.9 % (42.0-52.0); Hemoglobin 11.7 g/dl (14.0-18.0); Mean Corpuscular Hgb Conc 34.5 g/dL (32.0-36.0); Mean Corpuscular Volume 89.9 fL (80.0-100.0); Mean Platelet Volume 11.2 fL (9.4-12.4); Platelet Count 191 K/uL (130-400); RDW Coefficient of Variation 12.5 % (11.5-14.5); RDW Standard Deviation 41.2 fL (36.4-46.3); Red Blood Count 3.77 M/uL (4.70-6.10); White Blood Count 19.66 K/ul (4.8-10.8)
[2023-10-22] MEDS: oxyCODONE HCL IR 5 MG TAB (IMMEDIATE RELEASE) PO PRN (07:40)
[2023-10-22] MEDS: carvediloL 6.25 MG TAB PO SCH (07:41)
[2023-10-22 07:42] LABS: BUN Creatinine Ratio 21.5 (10-20); Calcium 7.9 mg/dl (8.6-10.3); Creatinine Clr Calc Pharmacy 133.7 ml/min; Est GFR (African American) 121.7 ml/min; Potassium 4.3 mmol/L (3.5-5.1)
[2023-10-22] MEDS: ASCORBIC ACID 500 MG TAB PO SCH (07:42)
[2023-10-22] MEDS: ACETAMINOPHEN 500 MG TAB PO SCH ×2 (07:42→14:14)
[2023-10-22] MEDS: ASPIRIN 81 MG ECTAB PO SCH (07:42)
[2023-10-22] MEDS: DOCUSATE SODIUM 100 MG CAP PO SCH (07:42)
--- NOTE | 2023-10-22 07:45 | Orthopedic Progress Note ---
Date of Service October 22, 2023 Assessment & Plan (1) Status post total right knee replacement: Overall he is doing quite well today with good pain control to the right knee. He will be seen and evaluated by physical therapy later on this morning to work on ambulation and range of motion exercises. He is on aspirin for DVT prophylaxis. He can be discharged home later today after his physical therapy evaluation. He will follow-up in [address] Virgen for postoperative care. Subjective . Kt was seen and evaluated at bedside this morning resting comfortably in no apparent distress. He notes that his pain is well-controlled to the right kn ee. He has been up and ambulating with no issues. He has yet to work with physical therapy as of this morning. He denies any other concerns this morning. Review of Systems All systems reviewed & are unremarkable except as noted in HPI & below. Physical Exam . On physical examination of the right knee, his dressing is in place, clean, dry, intact. His leg is out in full extension. He has active plantarflexion dorsiflexion of the right ankle. +2 DP and PT pulses. Less than 2-second cap illary refill. Normal sensation. Neurovascular intact. Results & Data Results & Data Laboratory Results . Diagnostic Findings . Postoperative x-rays of the right knee show the prosthesis to be in anatomical alignment with no signs of fracture complication or loosening. PG Care Time/CCT Total # of Minutes Spent Total Time Spent with Patient: Total time spent is greater than 50% in coordination of care (as documented) at patient's floor/unit and/or counseling patient: Coding Level of Care Code 73769 Post Operative Follow-Up Diagnoses Status post total right knee replacement Z96.651
[2023-10-22] MEDS: Scopolamine CHECK PATCH PLACEMENT SCH (07:48)
[2023-10-22] MEDS ORDERED: dexAMETHasone 10 MG in SYRINGE 0 ML IV SCH (08:00)
[2023-10-22] MEDS ORDERED: MULTIVITAMIN TAB PO SCH (09:00)
[2023-10-22] MEDS ORDERED: lisinopril 5 MG TAB PO SCH (09:00)
[2023-10-22] MEDS ORDERED: CHOLECALCIFEROL 1,000 UNITS 25 MCG TAB PO SCH (09:00)
[2023-10-22] MEDS ORDERED: TAMSULOSIN HCL 0.4 MG CAP PO SCH (09:00)
[2023-10-22] MEDS ORDERED: NICOTINE 14 MG/24 HR PATCH TD SCH (09:00)
--- NOTE | 2023-10-23 11:02 | Discharge Summary ---
Date of Service October 22, 2023 Principal Diagnosis Same as "Discharge Diagnosis" noted below under Discharge Instructions. Discharge Exam . On physical examination of the right knee, his dressing is in place, clean, dry, intact. His leg is out in full extension. He has active plantarflexion dorsiflexion of the right ankle. +2 DP and PT pulses. Less than 2-second capillary refill. Normal sensation. Neurovascular intact. Discharge Data Procedures Performed Operation Date: 10/21/23 10:40 Actual Procedures p Right Total Knee Arthroplasty(Right) - Partha Virgen MD Ordered Studies 10/21/23 05:00 US - OR guided needle placemen Routine Hospital Course (1) Status post total right knee replacement: On October 21, 2023 Kt arrived at [facility] and underwent a right total knee arthroplasty without complications. He had a spinal anesthetic. Postoperatively, he was started on aspirin for DVT prophylaxis and transferred to the general orthopedic floor in stable condition. His hospital course was uneventful. On postoperative day #1, his vital signs were stable and his pain was well-controlled. He participated well with physical therapy doing ambulation and range of motion exercises. He was then discharged home in stable condition. He will follow-up with Dr. Virgen in 2 weeks for postoperative care. PG Care Time/CCT Total # of Minutes Spent Total Time Spent with Patient: Total time spent is greater than 50% in coordination of care (as documented) at patient's floor/unit and/or counseling patient: Discharge Plan Discharge Items Patient Disposition: Home - Home Health Services Reason For Visit: Right Knee Degenerative Joint Disease Discharge Diagnosis: Right Knee Replacement Activity: Per Instructions section Weightbearing: Full weightbearing Non-emergency contact: Surgeon Call non-emergency contact if: you have any medication questions Follow-up/Referrals: Sarah Fonseca DO [Primary Care Provider] - Diet: Regular Addtl Attending Provider Instructions: ACTIVITY RECOMMENDATIONS: Physical Therapy: * You will go to physical therapy three times each week for four to six weeks after your surgery in order to regain your knee range of motion and to retrain your knee to work properly. * It is just as important to make sure you are getting your knee perfectly straight as it is to regain your knee bend. * Taking a pain pill an hour before therapy can help you have a more productive and comfortable therapy session. Home Exercise: * You were shown a series of exercises (heel props, heel slides, etc.) in the hospital. Do these exercises three to four times each day including the exercises you were shown in physical therapy. Walking: * Get up and walk several times each day. For the first four weeks, try not to stand or walk for more than one hour at a time. If you do stand or walk for more than one hour, you will not hurt anything, but your knee and leg will likely swell. * As you feel comfortable, you may change from the walker or crutches to a cane and then to independent walking. MEDICATIONS: New Medicine: * You will likely be taking one or more of these medications: 1. Oxycodone - A quick and shorter-acting pain medication. Take one to two tablets every six hours to lessen your pain. 2. Aspirin - Thins your blood to lessen the chance of forming a blood clot. * The most common side effects of pain medicine and iron are nausea and constipation. If nausea or constipation is too much of a problem or if you have any questions about your new medicines or doses, call [facility] at . We will try to help you manage these issues. "VERY IMPORTANT TO READ AND REVIEW" Pain: * The immediate post-operative period after knee replacement surgery is often quite painful. * You are given a prescription for pain medicine. You should take it, as directed, when you need it, especially before physical therapy and before going to bed. Pain that interferes with sleep is very common and can last several months. * You will likely need pain medicine for the first four to six weeks. It will not stop all of the pain. The pain will lessen and as you feel better, you may change to milder pain medicine such as Tylenol. * The most common side effects of pain medicine are nausea and constipation, so don't take more than you need. SPECIAL CARE INSTRUCTIONS: TEDs/Elastic Stockings: * The white elastic stockings help limit swelling and prevent blood clots from forming in your legs. The more you wear them, the more they work. * Wear them for six weeks after knee replacement surgery and four weeks after partial knee replacement. Incision Site Care: * Remove dressing postoperative day 2 and then shower. Keep direct shower pressure off the incision site. * After showering, cover neo with dry gauze and change daily or more frequently if the dressing is getting saturated with drainage. * Use the SAKINA stockings to hold dressing in place. DO NOT apply tape on the skin. * May completely stop using bandage if wound is dry and no drainage * [place] are removed between 2 and 3 weeks post-op. If your follow-up appointment is made before 2 weeks, please have your appointment re- scheduled. It is too early to remove the neo. Prevention of Infection: * Take antibiotics one hour before any dental cleaning, dental work, urological procedure, gastrointestinal procedure or any invasive surgery in order to prevent your new joint from getting infected. * You may get the antibiotics from the doctor performing the procedure or you may call our office at [phone] before and we will call in a prescription to the pharmacy of your choice. Things to Watch For: * Drainage from the incision site that occurs more than one week after your harris rgery. * Severely increased knee/leg pain or swelling. * Increased redness at the incision site. * Fever above 102 degrees Fahrenheit. * Unusual chest pain or shortness of breath. * Unusual pain or burning with urination. Call [facility] at [phone] with any of the above problems or if you have any questions about your medicines or recovery. FOLLOW UP VISIT: Make an appointment to see your doctor for approximately two weeks after surgery for a progress check and staple removal by calling the office at [phone]. Pending Studies at Discharge: No Stand-Alone Forms: My [facility], Pain - Opioid Pain Management, Smoking Cessation Medications and DC Order Prescriptions: Continued (DME) Custom Orthotics Misc See Rx Instructions .Route Qty: 1 0RF Rx Instructions: Custom orthotic shoes as directed cholecalciferol (vitamin D3) 50 mcg (2,000 unit) capsule 50 mcg PO QAM Qty: 90 3RF lisinopril [Zestril] 5 mg tablet 5 mg PO QAM Qty: 90 1RF carvedilol [Coreg] 6.25 mg tablet 6.25 mg PO BID Qty: 180 1RF Rx Instructions: must administer with a meal/food trazodone 50 mg tablet 50 mg PO HS PRN (Reason: Sleep) Qty: 90 1RF omeprazole 20 mg capsule,delayed release(DR/EC) 20 mg PO QAM PRN (Reason: reflux) Qty: 90 1RF atorvastatin [Lipitor] 40 mg tablet 40 mg PO QPM Qty: 90 3RF sennosides [Senokot] 8.6 mg tablet 8.6 mg PO BID 14 Days Qty: 28 0RF Rx Instructions: Take two times a day to prevent/treat constipation aspirin [Kyle Low Dose Aspirin] 81 mg tablet,delayed release (DR/EC) 81 mg PO BID 45 Days Qty: 90 0RF Rx Instructions: Take to prevent blood clots. acetaminophen [Tylenol Extra Strength] 500 mg tablet 1,000 mg PO TID 30 Days Qty: 180 0RF Rx Instructions: Take 3 times per day to lessen pain. ketorolac 10 mg tablet 10 mg PO Q6 PRN (Reason: pain) 5 Days Qty: 20 0RF Rx Instructions: Take 4 times per day with food for 5 days to lessen pain and swelling. cefadroxil 500 mg capsule 500 mg PO BID 7 Days Qty: 14 0RF Rx Instructions: Take 1 cap twice a day to prevent infection tamsulosin [Flomax] 0.4 mg capsule 0.4 mg PO DAILY Qty: 7 0RF Rx Instructions: Begin night BEFORE surgery to prevent urinary retention ondansetron 4 mg tablet,disintegrating 4 mg PO Q8 PRN (Reason: nausea) Qty: 20 1RF Rx Instructions: Take as needed for nausea oxycodone 5 mg tablet 5 - 10 mg PO Q6 PRN (Reason: pain) Qty: 40 0RF Rx Instructions: Take as needed for pain acetaminophen 500 mg capsule 1,000 mg PO TID PRN (Reason: Pain) ondansetron HCl 4 mg tablet 4 mg PO Q6H PRN (Reason: nausea) Discontinued aspirin [Kyle Low Dose Aspirin] 81 mg tablet,delayed release (DR/EC) 81 mg PO DAILY Rx Instructions: Take to prevent blood clots. oxycodone 5 mg tablet 5 - 10 mg PO BID PRN (Reason: pain) Patient Comments: prescription will be empty by day of surgery Rx Instructions: Take 1-2 tabs orally twice a day PRN; Krames/Other Patient Handouts: Knee Surg Exercise After, Total Knee Replacement, Tips After Knee Surgery, Knee Replace Home Recovery Admission Data Admit Date/Time: 10/21/23 13:13 Attending Provider: Partha Virgen Admit Provider: Partha Virgen Primary Care Provider: Sarah Fonseca Other Providers: [facility],Home Health Other Interventions: Discharge Summary Assessment (RN) Last Done: 10/22/23 10:54
== END 2023-10-22 14:55 | disposition home health service (06) ==
LOC: 3E 08:55 → ASU 08:55